=== PATIENT | male | born 1970 | race Caucasian/White ===

== ENCOUNTER 2020-08-27 18:02 | Emergency (ER) | payer SELFPAY ==
--- NOTE | ~2020-08-27 | XR_ITS ---
EXAMINATION: XR chest 2V DATE: 08/27/2020 18:40 INDICATION: Chest pain. Shortness of breath. TECHNIQUE: Frontal and lateral views of the chest were obtained. COMPARISON: None. FINDINGS: A calcified right lung nodule and calcified mediastinal lymph nodes are consistent with old granulomatous disease. No pleural effusion or pneumothorax. The heart size is normal. IMPRESSION: 1. No acute cardiopulmonary disease. Reviewed, dictated and finalized at location A.
[2020-08-27 18:10] VITALS: BP 155/96; PULSE 58; RESP 12; O2SAT 97
[2020-08-27 18:12] VITALS: PULSE 57; RESP 12; O2SAT 97
--- NOTE | 2020-08-27 18:28 | ECG_ITS ---
Measurements Intervals [place] Rate: 60 P: 62 IL: 164 QRS: 53 QRSD: 119 T: 40 QT: 369 QTc: 370 Interpretive Statements SINUS RHYTHM INTRAVENTRICULAR CONDUCTION DELAY DELAYED PRECORDIAL R/S TRANSITION BASELINE ARTIFACT- I, II, III, AVR, AVL, V1 BORDERLINE ECG Electronically Signed On 08-27-2020 19:50:37 CDT by Ezra Torres D.O.
[2020-08-27 18:38] LABS: Basophils Absolute Auto 0.1 K/mm3 (0.0-0.1); Basophils Percent Auto 0.7 % (0.2-1.2); Eosinophils Absolute Auto 0.2 K/mm3 (0-0.3); Hemoglobin 16.3 g/dL (14.0-18.0); Immature Granulocyte Absolute 0.03 K/mm3 (0.00-0.031); Immature Granulocyte Percent A 0.3 % (0-0.5); Lymphocytes Absolute Auto 3.65 K/mm3 (0.9-3.2); Lymphocytes Percent Auto 38.5 % (18.3-44.2); Mean Corpuscular Hemoglobin 29.1 pg (26-34); Mean Corpuscular Volume 85.7 fl (80-100); Mean Platelet Volume 10.8 fl (7.4-10.4); Monocytes Absolute Auto 0.5 K/mm3 (0.1-0.6); Monocytes Percent Auto 5.2 % (2.6-8.5); Neutrophils Absolute Auto 5.1 K/mm3 (1.3-6.7); Neutrophils Percent Auto 53.3 % (45.5-73.1); Platelet Count Result 187 k/mm3 (150-375); Red Cell Distribution Width 12.9 % (11.5-14.5); White Blood Count 9.5 K/mm3 (4.5-10.0)
[2020-08-27 18:41] LABS: Alanine Aminotransferase 31 U/L (4-50); Albumin Level 4.6 g/dL (3.5-5.1); Alkaline Phosphatase 70 U/L (38-126); Anion Gap 7 mmol/L (8-16); Aspartate Amino Transferase 33 U/L (17-59); Bilirubin,Total 0.5 mg/dL (0.2-1.3); Blood Urea Nitrogen 13 mg/dL (9-20); Carbon Dioxide 25 mmol/L (22-30); Chloride 107 mmol/L (98-107); Estimated CRCL calculation 95 ml/min; Estimated Glomerular Filt Rate > 60; Glucose 92 mg/dL (75-110); Lipase 80 U/L (23-300); Sodium 139 mmol/L (137-145)
[2020-08-27 18:53] LABS: Troponin I < 0.012 ng/mL (0.000-0.034)
--- NOTE | 2020-08-27 19:44 | ED.GENADULT ---
HPI - General Adult General Chief complaint: Shortness of Breath/Dyspnea Stated complaint: fabi chaves x1week Time Seen by Provider: 08/27/20 18:11 History of Present Illness HPI narrative: Patient is a 50-year-old male who presents ER with chest discomfort. Patient had an episode this evening where he had discomfort in his upper epigastrium felt like he could not breathe. It radiated to his shoulder and left side where he felt heaviness. Feels like he cannot take a deep breath in when this occurs. This is happened recurrently in the past. Number now and then he feels like it improves if he belches. Denies increased acid reflux. Unsure if it is associated with eating. No history of cardiac disease. Feels like his heart is racing when this occurs as well. Related Data Allergies Allergy/AdvReac Type Severity Reaction Status Date / Time No Known Allergies Allergy Verified 09/19/15 09:12 Review of Systems Review of Systems: All systems reviewed & are unremarkable except as noted in HPI and below Constitutional: Constitutional: Denies chills, Denies fever(s) and Denies weakness ENT: Denies nasal congestion and Denies sore throat Cardiovascular: Cardiovascular: Reports chest pain, Reports rapid heart rate and Reports radiating jaw, neck or arm pain Respiratory: Respiratory: Denies cough and Denies dyspnea Gastrointestinal: Gastrointestinal: Reports abdominal pain, Denies heartburn, Denies nausea and Denies vomiting PMFSH Past Medical History Medical History (Updated 08/27/20 @ 22:14 by Edmond Jones MD) Depression Other and unspecified hyperlipidemia Surgical History Surgical History (Updated 08/27/20 @ 22:07 by Edmond Jones MD) No pertinent past surgical history Family History Family History (Updated 12/20/13 @ 07:13 by DOCTOR UNKNOWN) Grandparent Family history of malignant neoplasm Other Family history of elevated blood lipids Social History Social History Smoking status: Current every day smoker Alcohol intake: never Exam Narrative: Exam Narrative: GENERAL: Well-appearing, well-nourished, and in no acute distress. HEAD: Normocephalic, atraumatic. CHEST: Clear to auscultation. No respiratory distress. HEART: Regular rate and rhythm. Normal peripheral pulses. ABDOMEN: Soft, nontender, nondistended. EXTREMITIES: Normal range of motion. No edema. SKIN: Warm, dry, no rash. NEURO: Alert and oriented x3. PSYCH: Normal mood and affect. Course Course Emergency Course: Suspect patient is having esophageal spasm or lower esophageal sphincter issue. Will start on PPI. Recommend follow-up with PCP. Vital Signs Vital signs: Vital Signs Pulse Rate 58 L 08/27/20 18:10 Respiratory Rate 12 08/27/20 18:10 Blood Pressure 155/96 H 08/27/20 18:10 Pulse Oximetry 97 08/27/20 18:10 Pulse Rate 55 L 08/27/20 19:45 Respiratory Rate 17 08/27/20 19:45 Blood Pressure 127/80 08/27/20 19:45 Pulse Oximetry 96 08/27/20 19:45 Medical Decision Making Vital Signs Vital Signs: Vital Signs Pulse Rate 58 L 08/27/20 18:10 Respiratory Rate 12 08/27/20 18:10 Blood Pressure 155/96 H 08/27/20 18:10 Pulse Oximetry 97 08/27/20 18:10 Pulse Rate 55 L 08/27/20 19:45 Respiratory Rate 17 08/27/20 19:45 Blood Pressure 127/80 08/27/20 19:45 Pulse Oximetry 96 08/27/20 19:45 Lab Data Result diagrams: 08/27/20 18:26 08/27/20 18:26 Labs: Lab Results 08/27/20 08/27/20 08/27/20 Range/Units 18:26 18:26 21:27 WBC 9.5 (4.5-10.0) K/mm3 RBC 5.60 (4.6-6.20) M/mm3 Hgb 16.3 (14.0-18.0) g/dL Hct 48.0 (42.0-52.0) % MCV 85.7 (80-100) fl MCH 29.1 (26-34) pg MCHC 34.0 (32-36) g/dl RDW 12.9 (11.5-14.5) % Plt Count 187 (150-375) k/mm3 MPV 10.8 H (7.4-10.4) fl Immature Gran % (Auto) 0.3 (0-0.5) % Neut % (Auto) 53.3 (45.5-73.1) % Lymph % (Auto) 38.5 (18.3-44.2) % Mo
[2020-08-27 19:45] VITALS: BP 127/80; PULSE 55; RESP 17; O2SAT 96
[2020-08-27 21:56] LABS: Troponin I < 0.012 ng/mL (0.000-0.034)
[2020-08-27 22:23] VITALS: BP 123/76; PULSE 57; RESP 16; TEMP 36.3; O2SAT 98
== END 2020-08-27 22:23 | disposition home or self-care (01) ==
PROVIDERS: Emergency Provider Emergency Medicine; PCP Internal Medicine
DX: K22.4 Dyskinesia of esophagus (principal); E78.5 Hyperlipidemia, unspecified; F17.210 Nicotine dependence, cigarettes, uncomplicated; I45.9 Conduction disorder, unspecified
CPT/HCPCS: 36415; 71046; 80053; 83690; 84484; 85025; 93005; 99284